=== PATIENT | female | born 2000 | race Caucasian/White ===

== ENCOUNTER 2023-06-03 18:19 | Emergency (ER) | payer MEDICAID ==
[~2023-06-03] VITALS: Ht 157.5 cm; Wt 100.0 kg
[2023-06-03 18:24] VITALS: TEMP 98.9; O2SAT 98
[2023-06-03 19:15] VITALS: BP 135/71; PULSE 105; RESP 16
[2023-06-03] MEDS ORDERED: IBUPROFEN 600MG TABLET PO ONE (19:15)
[2023-06-03] MEDS ORDERED: LIDOCAINE HCL 1% 20ML VIAL (Pyxis) INJ INFIL NR (19:15)
[2023-06-03] MEDS ORDERED: IBUPROFEN 600MG TABLET PO NR (19:15)
[2023-06-03] MEDS ORDERED: LIDOCAINE HCL 1% 20ML VIAL (Pyxis) INJ INFIL ONE (19:15)
== END 2023-06-03 21:32 | disposition home or self-care (01) ==
LOC: ER 18:19
DX: S01.01XA Laceration without foreign body of scalp, initial encounter (principal); G89.11 Acute pain due to trauma; W18.39XA Other fall on same level, initial encounter; Y93.89 Activity, other specified; Y92.89 Other specified places as the place of occurrence of the external cause; Y99.8 Other external cause status
CPT/HCPCS: 81025; 12002; 99282; J3490; Z7610 ×3